=== PATIENT | male | born 1960 | race Caucasian/White ===

== ENCOUNTER 2020-02-04 00:48 | Outpatient (CLI) | payer OTHER, SELFPAY ==
--- NOTE | 2020-02-04 07:45 | DI.US_ITS ---
EXAM: US SCROTUM CLINICAL HISTORY: RT INGUINAL PAIN,R10.31,INTERMITTENT TESTICULAR RETRACT,. TECHNIQUE: Scrotal ultrasound performed using grayscale, color-flow and spectral Doppler analysis. COMPARISON: No exams were available for comparison FINDINGS: Left testicle: Status post left orchiectomy 30 years ago Right testicle: 4.9 x 3.4 x 3.9 cm Echogenicity: Normal. Contour: Smooth. Mass: None seen. Microlithiasis: None. Hydrocele: None. Variocele: None. Hernia: No peristalsing bowel loop identified. Epididymis: 6 millimeter spermatocele. DOPPLER: Color: Symmetric and uniform, no hyperemia. Duplex: Bilateral testicular arterial waveforms visualized. IMPRESSION: 6 millimeters spermatocele on the right epididymis. Normal appearing right testicle. Status post l eft orchiectomy. DATA REPOSITORY:
== END 2020-02-04 01:08 ==
PROVIDERS: PCP Neuromusculoskeletal Medicine & OMM; Visit Provider Nurse Practitioner Family
DX: R10.31 Right lower quadrant pain (principal); N43.41 Spermatocele of epididymis, single; Z90.79 Acquired absence of other genital organ(s)
CPT/HCPCS: 76870